=== PATIENT | male | born 2000 | race Caucasian/White ===

== ENCOUNTER 2019-08-19 20:59 | Emergency (ER) | payer MEDICAID ==
[~2019-08-19] VITALS: Ht 182.9 cm; Wt 88.9 kg
[2019-08-19 21:10] VITALS: Ht 182.9 cm; Wt 88.9 kg
[2019-08-20 00:49] VITALS: BP 120/75
== END 2019-08-20 00:49 | disposition home or self-care (01) ==
LOC: ED 20:59
DX: B34.9 Viral infection, unspecified (principal); G44.209 Tension-type headache, unspecified, not intractable
CPT/HCPCS: 87804; J1885